=== PATIENT | female | born 1990 | race Caucasian/White ===

== ENCOUNTER → 2017-07-16 | Outpatient (CLI) | payer OTHER ==
[2017-07-16 15:34] LABS: HEMATOCRIT 32.5 % (37-47); HEMOGLOBIN 10.9 g/dL (12.0-16.0)
== END | disposition home or self-care (01) ==
LOC: C.LAB1850 14:01
PROVIDERS: ATTEND Obstetrics & Gynecology
DX: Z34.83 Encounter for supervision of other normal pregnancy, third trimester (principal)

== ENCOUNTER 2021-06-19 07:38 | Inpatient (IN) ==
[2021-06-19] MEDS ORDERED: OXYTOCIN 30 UNITS/500 ML BAG IV PRN ×3 (08:50→16:48)
[2021-06-19] MEDS ORDERED: PENICILLIN G POTASSIUM 6 MU in DEXTROSE 5% 250 ML IV STA (08:50)
--- NOTE | 2021-06-19 09:14 | History & Physical Report ---
Date of Service June 19, 2021 Assessment & Plan (1) Encounter for induction of labor: (2) Group beta Strep positive: Plan: admit, iv, labs. pcn for gbs pos, start pitocin. arom after labor pattern established. ts categ 1. Admission and Anticipated Discharge Date Admission Date: June 19, 2021 History of Present Illness Chief Complaint: planned induction Primary Care Provider: Cecile Lemons, DO 31yo at 40+wks ega presents to L&D for planned induction. Denies rom, vb. +FM. No ctx. PNC c/b 1. GBS pos, planned pcn 2. obesity, 32wk efw 78% PNL rh pos, ri, gbs neg OBH: x 3 GYNH: nl paps no stds. Allergies Allergy/AdvReac Type Severity Reaction Status Date / Time No Known Drug Allergies Allergy Verified 06/18/21 15:01 Home Medications Medication Instructions Recorded Confirmed Type prenat.vits,cristina,xkc-himi-bsshh 1 tab PO DAILY 11/09/20 06/19/21 History Patient History Medical History (Updated 06/19/21 @ 09:15 by Kira Crump MD, FACOG) Crohn's disease History of varicella Surgical History No pertinent past surgical history Family History Grandfather (Paternal) Diabetes Mother Ruptured spleen Denies family history of Ovarian cancer Breast cancer Colorectal cancer Social History (Updated 06/19/21 @ 08:35 by Alejandrina Alfred RN) Smoking Status: Never smoker Second Hand Exposure: No; Do You Dip or Chew Tobacco: No; Tobacco Cessation Education Requested by Patient: No Hx Alcohol Use: No Hx Substance Use: No Preferred Language: Greenlandic Communication Ability: Effective Cardiology Coordinator Required: No Beliefs That Will Affect Care: None marital status: marital status details: Aaln (44) [phone] Current Living Situation: Spouse and Family Current Living Situation Comment: lives with spouse and 3 children current occupational status: employed current occupation: administrative sales assistant Other Information That Helps Us Care for You: No Feels Safe at Home: Yes Safety Concerns: Feels Safe At This Time Assistive Devices: None Review of Systems as per Subjective / HPI Physical Exam Constitutional: WD/WN, vitals as above Respiratory: normal respiratory effort, lungs clear to auscultation Cardiovascular: Rate/Rhythm: regular rate and regular rhythm Gastrointestinal (Abdomen): soft gravid nt Musculoskeletal: no edema nontender calves Neurologic: grossly normal Psychiatric: A+Ox3, euthymic affect Genitourinary: OB Exam Abdomen: + estimated weight (8-9#) Manual OB Exam: + cervical dilation (3-4), + cervical effacement 50% and + station -2 OB Exam Monitor Tracing: + external FHT monitor used, + external uterine monitor used (no ctx), + category I and + normal FHT variability Results & Data ([facility]) Vital Signs (Past 12 Hours) Vital Signs Temp Pulse Resp BP 06/19/21 07:47 77 121/69 06/19/21 07:45 97.5 F L 20 Coding Level of Care Code None Diagnoses Encounter for induction of labor Z34.90 Group beta Strep positive B95.1
[2021-06-19] MEDS: LACTATED RINGER'S 1,000 ML IV PRN ×2 (09:27→14:32)
[2021-06-19 09:49] LABS: Hemoglobin 10.6 g/dL (12.0-16.0); Mean Corpuscular Hgb Conc 32.1 g/dL (32-36); Mean Corpuscular Volume 81.1 fL (80-100); Mean Platelet Volume 9.9 fL (7.4-10.4); Platelet Count 282 K/uL (130-400); RDW Coefficient of Variation 16.7 % (11.5-14.5); RDW Standard Deviation 49.7 fL (36.4-46.3); Red Blood Count 4.07 M/uL (4.2-5.4); White Blood Count 9.17 K/uL (4.8-10.8)
[2021-06-19] MEDS ORDERED: PENICILLIN G POTASSIUM 3 MU in DEXTROSE 5% 100 ML IV PRN (11:50)
[2021-06-19] MEDS ORDERED: ePHEDrine sulfate 50 MG/ML AMP ONE (13:13)
[2021-06-19] MEDS ORDERED: SODIUM CHLORIDE 0.9% INJ 10 ML VIAL ONE (13:13)
[2021-06-19] MEDS ORDERED: fentaNYL 2MCG/ML ROPIVACAINE 1.25MG/ML 100 ML BAG EPI ONE (13:14)
[2021-06-19] MEDS ORDERED: BUPIVACAINE 0.25% 30 ML VIAL ONE (13:14)
[2021-06-19] MEDS ORDERED: fentaNYL citrate 100 MCG/2 ML VIAL ONE (13:14)
--- NOTE | 2021-06-19 13:38 | Anesthesiology Consultation ---
Date of Service June 19, 2021 Assessment & Plan (1) Encounter for pre-operative examination: Chart Review Chart Review: Acceptable Risk for Labor Epidural Consults Requested none ASA ASA2 Proposed Anesthesia Anesthesia Type: Labor Epidural Risk / Benefits Reviewed With: PT / POA / Parent / Guardian, Accepts Plan and Informed Consent Obtained History Height/Weight Height: 5 ft 2 in Weight: 96.615 kg Allergies Allergy/AdvReac Type Severity Reaction Status Date / Time No Known Drug Allergies Allergy Unknown Verified 06/19/21 10:19 Medications Home Medications Medication Instructions Recorded Confirmed Last Taken prenat.vits,cristina,ssy-ofnc-ipbjr 1 tab PO DAILY 11/09/20 06/19/21 1 Day Ago ~06/18/21 Active Medications Generic Name Dose Route Start Last Admin Trade Name Freq PRN Reason Stop Dose Admin Oxytocin 30 units in 500 mls @ 9 mls/hr 06/19/21 08:50 06/19/21 12:20 Pitocin IV 06/21/21 08:49 0.54 units/hr .Q24H PRN 9 mls/hr Labor Induction/Augmentation Titration Protocol 0.54 UNITS/HR Lactated Ringer's 1,000 mls @ 125 mls/hr 06/19/21 08:50 06/19/21 13:03 Lr IV 06/21/21 08:49 999 mls/hr .Q8H PRN Infusion L&D Protocol Protocol Penicillin G Potassium 3 mu/ 106 mls @ 100 mls/hr 06/19/21 11:50 06/19/21 13:23 Dextrose IV 06/29/21 11:49 100 mls/hr Q4H PRN Administration GBS(+) Until Delivery Past Medical History Medical History Crohn's disease History of varicella Exercise / Class Metabolic Activity II 4-5 Yardwork/Stairs/Walk up hill Past Family History Family History Grandfather (Paternal) Diabetes Mother Ruptured spleen Denies family history of Ovarian cancer Breast cancer Colorectal cancer Past Surgical History Surgical History No pertinent past surgical history Past Anesthesia History No Hx of Anesthesia Complications and No Family Hx of Anesthesia Complications History of PONV No Hx of PONV and No Hx of Motion Sickness Social History Smoking Status: Never smoker Do You Dip or Chew Tobacco: No Hx Alcohol Use: No Hx Substance Use: No Physical Exam Vital Signs Last Vital Signs Temp 97.7 F 06/19/21 13:31 Pulse 75 06/19/21 13:30 Resp 20 06/19/21 13:31 BP 122/76 06/19/21 12:50 Pulse Ox 99 06/19/21 13:30 ENMT Mouth: no dentition abnormality Thyromental Distance: > or= 3.5 Finger Breadths Mallampati Class: II Neck normal visual inspection Respiratory normal respiratory effort Auscultation: lungs clear to auscultation bilaterally Cardiovascular Rate/Rhythm: regular rate and regular rhythm Testing Laboratory Results 06/19/21 09:05
--- NOTE | 2021-06-19 13:42 | Labor Progress Brief Note ---
Date of Service June 19, 2021 Subjective Late entry: had to attend delivery feeling regular ctx Assessment & Plan (1) Encounter for induction of labor: (2) Group beta Strep positive: Plan: doubt succeeded in arom. fhts categ1. c/w pit and pcn. now pt desires epidural. will reattempt arom when comfortable. Admission and Anticipated Discharge Date Admission Date: June 19, 2021 Physical Exam Constitutional: WD/WN, vitals as above Genitourinary: Manual OB Exam: + cervical dilation (3-4), + cervical effacement 50%, + station -2 and + amniotic fluid (attempted arom, pt did not tolerate exam, doubt successful) OB Exam Monitor Tracing: + external FHT monitor used, + external uterine monitor used (q2), + category I and + normal FHT variability Results & Data ([facility]) Vital Signs (Past 12 Hours) Vital Signs Temp Pulse Resp BP Pulse Ox 06/19/21 13:35 92 H 129/71 99 06/19/21 13:31 97.7 F 20 06/19/21 13:30 75 99 06/19/21 12:50 74 122/76 06/19/21 11:49 87 119/75 06/19/21 10:39 81 126/81 06/19/21 10:30 97.5 F L 20 06/19/21 09:32 83 120/67 06/19/21 07:47 77 121/69 06/19/21 07:45 97.5 F L 20 Coding Level of Care Code None Diagnoses Encounter for induction of labor Z34.90 Group beta Strep positive B95.1
[2021-06-19] MEDS ORDERED: NALBUPHINE HCL INJ 10 MG/ML AMP IV PRN (14:13)
[2021-06-19] MEDS ORDERED: ePHEDrine sulfate 50 MG/ML AMP IV PRN (14:13)
[2021-06-19] MEDS ORDERED: NALOXONE HCL 0.4 MG/1 ML VIAL/CARP IV PRN (14:13)
[2021-06-19] MEDS ORDERED: NALOXONE HCL 1 MG in SODIUM CHLORIDE 0.9% 1000ML 1,000 ML IV PRN (14:13)
[2021-06-19] MEDS ORDERED: ONDANSETRON INJ 2 MG/ML 2 ML VIAL IV PRN (14:13)
[2021-06-19] MEDS ORDERED: fentaNYL 2MCG/ML ROPIVACAINE 1.25MG/ML 100 ML BAG EPI PRN (14:13)
[2021-06-19] MEDS ORDERED: diphenhydrAMINE 50 MG/ML VIAL IV PRN (14:13)
--- NOTE | 2021-06-19 14:49 | Labor Progress Brief Note ---
Date of Service June 19, 2021 Subjective feeling rectal pressure Assessment & Plan (1) Encounter for induction of labor: (2) Group beta Strep positive: Plan: good cx change. likely arom was successful initially. clear fluid. fhts categ 2, with occas variables. pit and pcn. Admission and Anticipated Discharge Date Admission Date: June 19, 2021 Physical Exam Constitutional: WD/WN, vitals as above Genitourinary: Manual OB Exam: + cervical dilation 7 cm, + cervical effacement 70% and + station -2 OB Exam Monitor Tracing: + external FHT monitor used, + external uterine monitor used, + category II, + normal FHT variability and + variable decelerations (occas with ctx) ? persistent forebag, no arom. Results & Data ([facility]) Vital Signs (Past 12 Hours) Vital Signs Temp Pulse Resp BP Pulse Ox 06/19/21 14:46 90 132/78 06/19/21 14:45 89 91 06/19/21 14:42 108 H 128/73 06/19/21 14:40 91 H 96 06/19/21 14:38 98 H 94 06/19/21 14:37 91 H 120/58 L 06/19/21 14:35 79 99 06/19/21 14:32 85 107/63 06/19/21 14:30 87 98 06/19/21 14:27 93 H 108/56 L 06/19/21 14:25 84 98 06/19/21 14:21 96 H 114/60 06/19/21 14:20 88 98 06/19/21 14:19 98 H 115/62 06/19/21 14:17 100 H 115/55 L 06/19/21 14:15 96 H 114/60 97 06/19/21 14:13 116 H 114/60 06/19/21 14:11 89 118/69 06/19/21 14:10 88 99 06/19/21 14:09 106 H 143/60 H 90 06/19/21 14:06 93 H 132/73 06/19/21 14:05 101 H 94 06/19/21 14:00 99 H 97 06/19/21 13:55 113 H 98 06/19/21 13:51 107 H 92 06/19/21 13:50 109 H 98 06/19/21 13:45 99 H 97 06/19/21 13:40 93 H 97 06/19/21 13:39 90 93 06/19/21 13:35 92 H 129/71 99 06/19/21 13:31 97.7 F 20 06/19/21 13:30 75 99 06/19/21 12:50 74 122/76 06/19/21 11:49 87 119/75 06/19/21 10:39 81 126/81 06/19/21 10:30 97.5 F L 20 06/19/21 09:32 83 120/67 06/19/21 07:47 77 121/69 06/19/21 07:45 97.5 F L 20 Coding Level of Care Code None Diagnoses Encounter for induction of labor Z34.90 Group beta Strep positive B95.1
[2021-06-19] MEDS ORDERED: LIDOCAINE 1% LOCAL 20 ML VIAL ONE (15:04)
--- NOTE | 2021-06-19 15:21 | Delivery Summary ---
Vaginal Delivery Summary Date of Service June 19, 2021 Vaginal Delivery Summary and 2nd Degree LAC The patient dilated to complete and pushed to deliver a viable male infant Apgars 8 and 8 via over 2nd degree perineal laceration. Mild shoulder dystocia encountered relieved with Anita maneuvers and consistent maternal expulsive efforts. Body delivered with ease. Mouth and nose then bulb suctioned. was vigorous and crying at . Cord clamped at 30 seconds of life and to maternal abdomen where the cord was then doubly clamped and cut. Placenta delivered spontaneously and intact, three-vessel cord. Hemostasis achieved with dilute pitocin and uterine massage. Laceration repaired with 3-0 vicryl after 1% local lidocaine anesthesia in usual fashion. Cervix and sulci intact. EBL 300 cc. Mother and baby stable in recovery. [facility] [place] Vaginal Delivery Charge Delivery Type Details: and 2nd Degree LAC
[2021-06-19] MEDS ORDERED: OXYTOCIN 20 UNITS in LACTATED RINGER'S 1,000 ML IV SCH (16:15)
[2021-06-19] MEDS ORDERED: HYDROCORTISONE ACETATE 25 MG SUPP PR PRN (16:48)
[2021-06-19] MEDS ORDERED: oxyCODONE/ACETAMINOPHEN 5mg/325mg TAB PO PRN (16:48)
[2021-06-19] MEDS ORDERED: BENZOCAINE 20% AER SPR 82.5 GM CAN EXT PRN (16:48)
[2021-06-19] MEDS ORDERED: ACETAMINOPHEN 325 MG TAB PO PRN (16:48)
[2021-06-19] MEDS ORDERED: DIPHTHERIA/TETANUS/PERTUSSIS 0.5 ML SYR/VIAL IM ONE (16:48)
--- NOTE | 2021-06-19 16:58 | Anesthesia Procedure Note ---
Date of Service June 19, 2021 Anesthesia Post Epidural Note Vital Signs Vital Signs: Temp Pulse Resp BP Pulse Ox 97.7 F 80 20 124/70 97 06/19/21 13:31 06/19/21 16:47 06/19/21 13:31 06/19/21 16:47 06/19/21 15:35 Pain Intensity Bilateral Abdomen: Pain Intensity: 0 Notes Mental Status: alert / awake / arousable and participated in evaluation Nausea / Vomiting: adequately controlled Pain: adequately controlled Airway Patency, RR, SpO2: stable & adequate BP & HR: stable & adequate Hydration State: stable & adequate Neuraxial Anesthesia: was administered and sensory block is resolving Anesthetic Complications: no major complications apparent and Pt Satisfied with anesthetic care Epidural: Removed without complications and With tip intact
[2021-06-19] MEDS: IBUPROFEN 600 MG TAB PO PRN ×2 (19:19→23:54)
[2021-06-19] MEDS: DOCUSATE SODIUM 100 MG CAP PO SCH (21:18)
[2021-06-20] MEDS: IBUPROFEN 600 MG TAB PO PRN ×3 (04:10→12:23)
--- NOTE | 2021-06-20 06:31 | Obstetrical Progress Note ---
Date of Service June 20, 2021 Assessment & Plan (1) care and examination: stable, routine care. desires dc home, instructions reviewed. f/u 6 wk pp check. breast/rhpos/ri Day #:: 1 Subjective Ambulation: ambulating normally Voiding: no voiding problems Diet Tolerance:: regular diet Lochia:: Small Feeding Type:: breast feeding denies complaints. no pain issues Constitutional: + as per Subjective / HPI Physical Exam Constitutional WD/WN, vitals as above Respiratory normal respiratory effort, lungs clear to auscultation Cardiovascular Rate/Rhythm: regular rate and regular rhythm Gastrointestinal (Abdomen) Inspection/Auscultation: abdomen normal to inspection Percussion/Palpation: abdomen soft Fundus firm 1cm down Musculoskeletal nt calves no edema Neurologic grossly normal Psychiatric A+Ox3, euthymic affect Results & Data ([facility]) Vital Signs (Past 12 Hours) Vital Signs Temp Pulse Resp BP Pulse Ox 06/20/21 04:10 97.7 F 76 18 117/70 95 06/19/21 23:50 97.5 F L 84 18 133/70 94 06/19/21 19:30 97.7 F 91 H 18 116/76 97
[2021-06-20] MEDS: DOCUSATE SODIUM 100 MG CAP PO SCH (07:43)
[2021-06-20] MEDS ORDERED: PRENATAL VITAMIN 1 TAB PO SCH (08:00)
== END 2021-06-20 16:50 | disposition home or self-care (01) | DRG 807 ==
LOC: 4S1 07:38 → 4S2 18:47